=== PATIENT | male | born 1960 ===

== ENCOUNTER 2022-07-24 14:34 | Emergency (ER) | payer OTHER ==
[~2022-07-24] VITALS: Ht 177.8 cm; Wt 79.4 kg
[~2022-07-24 14:34] MED LIST: ALLEGRA ALLERG180 MG PO; FLONASE16 GM NS; GILTUSS TR TAB1 EACH PO
== END 2022-07-24 18:27 | disposition home or self-care (01) ==
LOC: ER 14:34
DX: S42.401A Unspecified fracture of lower end of right humerus, initial encounter for closed fracture (principal); S40.011A Contusion of right shoulder, initial encounter; S60.211A Contusion of right wrist, initial encounter; W18.30XA Fall on same level, unspecified, initial encounter; Y93.9 Activity, unspecified; Y92.89 Other specified places as the place of occurrence of the external cause; Y99.9 Unspecified external cause status; Z88.2 Allergy status to sulfonamides; Z88.8 Allergy status to other drugs, medicaments and biological substances